=== PATIENT | male | born 1995 | race African-American/Black ===

== ENCOUNTER 2018-06-19 10:30 | Emergency (ER) | payer MEDICAID, OTHER ==
[~2018-06-19] VITALS: Ht 185.4 cm; Wt 100.0 kg
[2018-06-19 11:23] LABS: CLARITY URINE CLEAR (CLEAR); COLOR URINE YELLOW (YELLOW); KETONES URINE NEGATIVE (NEGATIVE); LEUKOCYTE ESTERASE URINE NEGATIVE (NEGATIVE); NITRITE URINE NEGATIVE (NEGATIVE); OCCULT BLOOD URINE NEGATIVE (NEGATIVE); PROTEIN URINE NEGATIVE (NEGATIVE); SPECIFIC GRAVITY URINE 1.017 (1.005-1.030); UROBILINOGEN URINE 0.2 E.U./dL (0.2-1.0)
[2018-06-19] MEDS ORDERED: LIDOCAINE HCL/PF 1% 10 MG/ML 5ML VIAL IJ NR (11:30)
[2018-06-19] MEDS ORDERED: AZITHROMYCIN 500 MG TABLET PO NR (11:30)
[2018-06-19] MEDS ORDERED: CEFTRIAXONE SODIUM 250 MG/VIAL IM NR (11:30)
[2018-06-19 12:35] VITALS: BP 132/59
== END 2018-06-19 12:37 | disposition home or self-care (01) ==
LOC: ER 10:30
DX: N34.2 Other urethritis (principal); J45.909 Unspecified asthma, uncomplicated
CPT/HCPCS: 81003; 96372; 99283; J0696; J3490; Z7610

== ENCOUNTER 2018-08-07 03:24 | Emergency (ER) | payer SELFPAY ==
[~2018-08-07] VITALS: Ht 193 cm; Wt 105.0 kg
[2018-08-07 04:33] LABS: BASOPHILS % 0.9 % (0.0-2.0); CHLORIDE 107 mEq/L (98-107); EOSINOPHILS % 7.4 % (0.0-5.0); HEMATOCRIT. 44.4 % (42.0-52.0); HEMOGLOBIN. 14.5 g/dL (14.0-18.0); LYMPHOCYTES % 32.5 % (20.0-50.0); MEAN CORPUSCULAR HEMOGLOBIN 26.3 pg (28.0-32.0); MEAN CORPUSCULAR VOLUME 80.6 fL (80.0-94.0); MEAN PLATELET VOLUME 9.2 fl (7.4-10.4); MONOCYTES % 8.8 % (2.0-8.0); NEUTROPHILS % 50.4 % (40.0-76.0); PLATELET 212 x1000/uL (130-400); RED CELL DISTRIBUTION WIDTH 13.6 % (11.6-14.6)
[2018-08-07 05:32] VITALS: BP 108/65
== END 2018-08-07 05:34 | disposition home or self-care (01) ==
LOC: ER 03:40
DX: R23.4 Changes in skin texture (principal); J45.909 Unspecified asthma, uncomplicated
CPT/HCPCS: 36415; 80053; 85025; 99284